=== PATIENT | male | born 1950 | race Caucasian/White ===

== ENCOUNTER 2022-11-24 05:55 | Day surgery (SDC) | payer MEDICARE ==
[2022-10-30 11:37] VITALS: BP 156/81
[~2022-11-24] VITALS: Ht 182.9 cm; Wt 81.8 kg
[~2022-11-24 05:55] MED LIST: CYCLOBENZAPRINE5 MG PO; FLOMAX0.4 MG PO; MELOXICAM7.5 MG PO
[2022-11-24 06:07] VITALS: BP 137/68
[2022-11-24] MEDS ORDERED: VITAMIN C100 MG PO (06:08)
[2022-11-24] MEDS ORDERED: ZINC30 M1 PO (06:09)
[2022-11-24] MEDS ORDERED: VITAMIN E45 M1 PO (06:09)
[2022-11-24] MEDS ORDERED: MAGNESIUM100 MG PO (06:09)
[2022-11-24 08:36] VITALS: BP 130/88
--- NOTE | 2022-11-24 08:54 | NUR ---
11/24/22 0854 Cindy Ro 0814 PT ARRIVED IN PACU SLEEPY WITH NO C/O'S. 0825 AWAKE AND C/O URGE TO VOID. VOIDED 50ML OF RED COLORED URINE. DR FERRELL AND OK TO DC HOME. 0840 GETTING DRESSED WITH STAND BY ASSIST. DC INSTRUCTIONS GIVEN. ALL QUESTIONS ANSWERED. 0852 LEFT VIA W/C.
--- NOTE | 2022-11-26 09:59 | PATH ---
[facility] [address], [place] [address] Signed SPECIMEN(S): A LEFT LATERAL BASE PROSTATE BIOPSY SPECIMEN(S): B LEFT LATERAL MID PROSTATE BIOPSY SPECIMEN(S): C LEFT LATERAL APEX PROSTATE BIOPSY SPECIMEN(S): D LEFT MEDIAL BASE PROSTATE BIOPSY SPECIMEN(S): E LEFT MEDIAL MID PROSTATE BIOPSY SPECIMEN(S): F LEFT MEDIAL APEX PROSTATE BIOPSY SPECIMEN(S): G RIGHT MEDIAL BASE PROSTATE BIOPSY SPECIMEN(S): H RIGHT MEDIAL MID PROSTATE BIOPSY SPECIMEN(S): I RIGHT MEDIAL APEX PROSTATE BIOPSY SPECIMEN(S): J RIGHT LATERAL BASE PROSTATE BIOPSY SPECIMEN(S): K RIGHT LATERAL MID PROSTATE BIOPSY SPECIMEN(S): L RIGHT LATERAL APEX PROSTATE BIOPSY SPECIMEN(S): M LEFT TRANSITION ZONE SPECIMEN(S): N RIGHT TRANSITION ZONE CLINICAL HISTORY: N40.1 (enlarged prostate with lower urinary tract symptoms), 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 Left lateral base, prostate core biopsy: - Benign prostatic tissue B. Left lateral mid, prostate core biopsy: - Benign prostatic tissue C. Left lateral apex, prostate core biopsy: - Benign prostatic tissue D. Left medial base, prostate core biopsy: - Benign prostatic tissue with chronic inflammation E. Left medial mid, prostate core biopsy: - Benign prostatic tissue F. Left medial apex, prostate core biopsy: - Benign prostatic tissue G. Right medial base, prostate core biopsy: - Benign prostatic tissue with acute inflammation H. Right medial mid, prostate core biopsy: - Benign prostatic tissue with chronic inflammation I. Right medial apex, prostate core biopsy: - Benign prostatic tissue with chronic inflammation J. Right lateral base, prostate core biopsy: - Benign prostatic tissue PATIENT NAME: LAWRENCE EDMONDS PATHOLOGY DATE OF : 48 REPORT #: [id number] PHYSICIAN: DENISE LLOYD PCP: CORRY WHITESIDE REPORT IS CONFIDENTIAL AND NOT TO BE RELEASED WITHOUT AUTHORIZATION [facility] [address], [place] [address] Signed K. Right lateral mid, prostate core biopsy: - Benign prostatic tissue L. Right lateral apex, prostate core biopsy: - Benign prostatic tissue with chronic inflammation M. Left transition zone, prostate core biopsy: - Benign prostatic tissue with chronic inflammation N. Right transition zone, prostate core biopsy: - Benign prostatic tissue with chronic inflammation [facility] MICROSCOPIC EXAMINATION: Histologic sections of all submitted blocks are examined by light microscopy. These findings, together with the gross examination, support the pathologic diagnosis. [facility] SPECIMEN SOURCE AND GROSS DESCRIPTION : The specimens are received in formalin in fourteen parts. They are labeled and designated "Matthew" and further designated with the site listed below. They are all inked [place]. A. SPECIMEN: Left lateral base prostate biopsy. PIECES: One. CORE LENGTH: 1.6 cm. All in (A1). B. SPECIMEN: Left lateral mid prostate biopsy. PIECES: One. CORE LENGTH: 2.5 cm. All in (B1). C. SPECIMEN: Left lateral apex prostate biopsy. PIECES: One. CORE LENGTH: 2.3 cm. All in (C1). D. SPECIMEN: Left medial base prostate biopsy. PIECES: Two. CORE LENGTH: 0.8-0.9 cm. All in (D1). E. SPECIMEN: Left medial mid prostate biopsy. PIECES: One. CORE LENGTH: 1.9 cm. All in (E1). F. SPECIMEN: Left medial apex prostate biopsy. PIECES: One. CORE LENGTH: 1.7 cm. All in (F1). G. SPECIMEN: Right medial base prostate biopsy. PIECES: Two. CORE LENGTH: 0.6-1.0 cm. All in (G1). H. SPECIMEN: Right medial mid prostate biopsy. PIECES: Two. CORE LENGTH: 0.4-1.1 cm. All in (H1). I. SPECIMEN: Right medial apex prostate biopsy. PIECES: One. CORE LENGTH: 2.3 cm. All in (I1). J. SPECIMEN: Right lateral base prostate biopsy. PIECES: One. CORE LENGTH: 1.5 PATIENT NAME: LAWRENCE EDMONDS PATHOLOGY DATE OF : 48 REPORT #: [id number] PHYSICIAN: DENISE LLOYD PCP: CORRY WHITESIDE REPORT IS CONFIDENTIAL AND NOT TO BE RELEASED WITHOUT AUTHORIZATION [facility] [address], [place] [address] Signed cm. All in (J1). K. SPECIMEN: Right lateral mid prostate biopsy. PIECES: One. CORE LENGTH: 2.2 cm. All in (K1). L. SPECIMEN: Right lateral apex prostate biopsy. PIECES: Two. CORE LENGTH: 1.1-1.4 cm. All in (L1). M. SPECIMEN: Left transition zone prostate biopsy. PIECES: One. CORE LENGTH: 1.5 cm. All in (M1). N. SPECIMEN: Right transition zone prostate biopsy. PIECES: Two. CORE LENGTH: 0.2-1.4 cm. All in (N1). VB (under the direct supervision of a pathologist) The Gross Description was prepared using a voice recognition system. The report was reviewed for accuracy; however, sound-alike word errors, addition and/or deletions may occur. If there is any question about this report, please contact Client Services. ADDITIONAL NOTES: Immunohistochemical and/or in situ hybridization studies if performed in this case included appropriate positive controls that reacted as expected. This test was developed and its performance characteristics determined by [facility]. It has not been cleared or approved by the U.S. Food and Drug Administration. The FDA has determined that such clearance or approval is not necessary. This test is used for clinical purposes. It should not be regarded as investigational or for research. [facility] is certified under the Clinical Laboratory Improvement Amendments of 1988 (CLIA) as qualified to perform high complexity clinical laboratory testing. PERFORMING LABORATORY: Technical component was performed by [facility], [address] [place] [address] (CLIA# [id number]). Professional interpretation was performed by [facility] - [address] [id number] Diagnostician: En Hurley MD Pathologist Electronically Signed 11/26/2022 Copies: PATIENT NAME: LAWRENCE EDMONDS PATHOLOGY DATE OF : 48 REPORT #: [id number] PHYSICIAN: DENISE LLOYD PCP: CORRY WHITESIDE REPORT IS CONFIDENTIAL AND NOT TO BE RELEASED WITHOUT AUTHORIZATION [facility] [address] [facility] [place], [place] [address] Signed ~ PATIENT NAME: LAWRENCE EDMONDS PATHOLOGY DATE OF : 48 REPORT #: [id number] PHYSICIAN: DENISE PATHOLOGY PCP: CORRY WHITESIDE REPORT IS CONFIDENTIAL AND NOT TO BE RELEASED WITHOUT AUTHORIZATION
== END 2022-11-24 08:52 | disposition home or self-care (01) ==
LOC: DS 05:55
PROVIDERS: ATTEND Urology
PROC: 0VB07ZX Excision of Prostate, Via Natural or Artificial Opening, Diagnostic (ICD-10-PCS; principal; 2022-11-24 07:30)
DX: N40.1 Benign prostatic hyperplasia with lower urinary tract symptoms (principal); N13.8 Other obstructive and reflux uropathy; R31.29 Other microscopic hematuria; I10 Essential (primary) hypertension; N41.1 Chronic prostatitis
CPT/HCPCS: 00910; 76942; G0416; J0690; J2250; J2704; J7121